=== PATIENT | female | born 1990 | race Two or more races ===

== ENCOUNTER 2016-12-09 02:44 | Emergency (ER) | payer SELFPAY ==
[~2016-12-09 02:44] MED LIST: AMOXICILLIN500 M2 PO; CIPRO500 M2 PO; CLARITHROMYCIN500 M2 PO; OMEPRAZOLE20 M4 PO; PERCOCET 5-3251 EACH PO; PYRIDIUM200 M2 PO; ZOFRAN ODT4 MG PO; [UNRECOGNIZED DRUG - REMARK]; [UNRECOGNIZED DRUG - REMARK]
[2016-12-09 03:16] LABS: URINE BILIRUBIN NEGATIVE (NEG); URINE BLOOD MODERATE (NEG); URINE GLUCOSE (UA) NEGATIVE (NEG); URINE KETONE NEGATIVE (NEG); URINE LEUKOCYTE ESTERASE NEGATIVE (NEG); URINE NITRITE NEGATIVE (NEG); URINE PROTEIN NEGATIVE (NEG)
[2016-12-09 03:20] LABS: URINE APPEARANCE SL CLOUDY; URINE COLOR YELLOW
[2016-12-09 03:22] LABS: BASO % 0.2 % (0-2); EOS % 1.6 % (0-7); EOSINOPHIL ABSOLUTE COUNT 0.2 tho/cmm (0.0-0.7); HCT-HEMATOCRIT 36.5 % (34.0-49.0); HGB-HEMOGLOBIN 13.1 gm/dl (12.0-15.5); IMMATURE GRANULOCYTES ABSOLUTE 0.02 tho/cmm (0-0.03); IMMATURE GRANULOCYTES PERCENT 0.2 % (0-0.3); LYMPH % 23.8 % (20-45); LYMPH ABSOLUTE COUNT 2.3 tho/cmm (0.8-4.5); MCH (MEAN CORPUSCULAR HGB) 31.5 pg (28.0-32.0); MCHC MEAN CORPUSCULAR HGB CONC 35.9 % (32.0-36.0); MCV (MEAN CELL VOLUME) 87.7 fl (82.0-96.0); MEAN PLATELET VOLUME 9.3 cmc (9.4-12.4); MONO % 7.2 % (0-12); MONOCYTE ABSOLUTE COUNT 0.7 tho/cmm (0.0-1.2); NEUTROPHIL ABSOLUTE COUNT 6.4 tho/cmm (1.6-8.0); NEUTROPHIL-AUTOMATED 6.4 tho/cmm (1.6-8.0); PLATELET COUNT 234 tho/cmm (150-450); RED BLOOD COUNT 4.16 mil/cmm (4.00-5.20); RED CELL DISTRIBUTION WIDTH 12.9 % (12.4-16.4); WHITE BLOOD COUNT 9.5 tho/cmm (4.0-10.0)
[2016-12-09 03:27] LABS: URINE AMORPHOUS 2+; URINE WBC 0 /[HPF] (0-5)
[2016-12-09 03:35] LABS: ALB/GLOB RATIO 0.8 (0.8-2.0); ALBUMIN 3.5 g/dl (3.5-5.0); ALKALINE PHOSPHATASE 116 U/L (33-138); ALT/SGPT 20 U/L (12-78); ANION GAP 15 mmol/L (0-20); AST/SGOT 8 U/L (10-40); BILIRUBIN,TOTAL 0.3 mg/dl (0-1.5); BLOOD UREA NITROGEN 12 mg/dl (6-24); CALCIUM 8.5 mg/dl (8.5-10.5); CARBON DIOXIDE-VENOUS 21 mmol/L (22-32); CHLORIDE 105 mmol/l (96-110); CREATININE 0.55 mg/dl (0.50-1.10); GLUCOSE 128 mg/dL (70-110); LIPASE 148 U/L (73-393); POTASSIUM 3.7 mmol/L (3.7-5.1); SODIUM 137 mmol/L (135-145); eGFR VALUE FOR BLACK >90 mL/Min
== END 2016-12-09 05:38 ==
LOC: EDMED 02:44
PROVIDERS: Emergency Medicine
DX: N83.201 Unspecified ovarian cyst, right side (principal)
CPT/HCPCS: J1170; J1885; J2405; J7030